=== PATIENT | female | born 1960 | race Caucasian/White ===

== ENCOUNTER 2017-09-24 22:04 | Emergency (ER) | payer MEDICARE ==
[~2017-09-24] VITALS: Ht 167.6 cm; Wt 132.9 kg
[2017-09-24 22:08] VITALS: BP_SYST 169
--- NOTE | 2017-09-24 22:17 | NUR ---
Patient to ER bed 7 to gown for evaluation. Side rails up. Report given to JONO LEA.
--- NOTE | 2017-09-24 22:20 | NUR ---
Patient AOx4, ambulatory, presents to ER with complaint of chest pain 6/10 radiating to left arm, palpitations, and REMY. Patient states hx of DM, HTN, and Fibromyalgia. Patient states she is non compliant with diet. No acute respiratory distress noted.
--- NOTE | 2017-09-24 22:40 | NUR ---
PEYMAN Wade at bedside for medical evaluation.
[2017-09-24] MEDS: ASPIRIN 81 MG TAB.CHEW PO ONE (22:47)
--- NOTE | 2017-09-24 22:54 | NUR ---
# 22 gauge angiocath placed to left hand. Use of asceptic technique. Opsite placed over site. Blood return noted. Blood for lab drawn from site. Flushed with 10 cc of normal saline. No evidence of infiltration noted. Patient tolerated well.
--- NOTE | 2017-09-24 23:05 | NUR ---
No adverse reactions noted after medication administration. Will continue to monitor.
[2017-09-24 23:06] LABS: BASOPHILS # (AUTO) 0.4 K/uL (0.0-0.2); BASOPHILS % (AUTO) 4.2 % (0.0-2.0); EOSINOPHILS # (AUTO) 0.1 K/uL (0.0-0.4); EOSINOPHILS % (AUTO) 0.8 % (0.0-4.0); HEMATOCRIT 41.7 % (36-48); HEMOGLOBIN 13.9 g/dL (12.0-16.0); LYMPHOCYTES # (AUTO) 2.3 K/uL (1.0-5.5); LYMPHOCYTES % (AUTO) 25.1 % (20.5-51.5); MEAN CORPUSCULAR HEMOGLOBIN 28 pg (27-31); MEAN CORPUSCULAR HGB CONC 33 % (32-36); MEAN CORPUSCULAR VOLUME 83 fL (79.0-98.0); MONOCYTES # (AUTO) 0.7 K/uL (0.0-1.0); MONOCYTES % (AUTO) 7.3 % (1.7-9.3); NEUTROPHILS # (AUTO) 5.9 K/uL (1.8-7.7); NEUTROPHILS % (AUTO) 62.6 % (40.0-70.0); PLATELET COUNT (AUTO) 315 K/uL (130-430); RED BLOOD CELL COUNT(AUTO) 5.03 MIL/uL (4.2-6.2); RED CELL DISTRIBUTION WIDTH 15.3 % (9.0-15.0); WHITE BLOOD COUNT (AUTO) 9.4 K/uL (4.8-10.8)
[2017-09-24 23:14] LABS: CALCIUM 10.3 mg/dL (8.4-11.0); CREATININE 1.21 mg/dL (0.55-1.30); POTASSIUM 4.7 mmol/L (3.5-5.1)
[2017-09-24 23:18] LABS: INR 0.9 (0.8-1.2); PROTHROMBIN TIME 9.5 SECS (9.5-12.5)
[2017-09-24 23:20] LABS: ALBUMIN 3.5 g/dL (3.4-4.8); TOTAL BILIRUBIN 0.3 mg/dL (0.0-1.0)
[2017-09-24 23:34] LABS: BILIRUBIN,URINE NEGATIVE (NEGATIVE); CLARITY/URINE CLEAR (CLEAR); COLOR,URINE YELLOW (YELLOW); GLUCOSE,URINE 3+ (NEGATIVE); KETONES,URINE NEGATIVE (NEGATIVE); LEUKOCYTE ESTERASE ,URINE NEGATIVE (NEGATIVE); NITRITE, URINE NEGATIVE (NEGATIVE); PROTEIN URINE NEGATIVE (NEGATIVE); UROBILINOGEN,URINE 0.2 (0.2-1.0)
[2017-09-24 23:35] LABS: BLOOD, URINE TRACE (NEGATIVE)
[2017-09-24 23:40] LABS: RBC,URINE 0-3 /HPF (0-3); WBC,URINE 0-3 /HPF (0-3)
[2017-09-24 23:41] LABS: BACTERIA,URINE FEW /HPF (None Seen); YEAST,URINE Few /HPF (None Seen)
[2017-09-24] MEDS: INSULIN REGULAR, HUMAN 10 UNITS/0.1 ML INJ IVP ONE (23:43)
[2017-09-25] MEDS ORDERED: FLUCONAZOLE 100 MG TABLET (DIFLUCAN) ONE (00:16)
[2017-09-25] MEDS: FLUCONAZOLE 200 MG TABLET (DIFLUCAN) PO ONE (00:20)
--- NOTE | 2017-09-25 00:32 | NUR ---
BS 268 at this time. made aware.
[2017-09-25 01:44] VITALS: BP_SYST 148
--- NOTE | 2017-09-25 01:44 | NUR ---
Patient given written and verbal discharge instructions and verbalizes understanding. ER MD discussed with patient the results and treatment provided. Patient in stable condition. ID arm band removed. IV catheter removed intact and dressing applied, no active bleeding. Patient educated on pain management and to follow up with PMD. Pain Scale 0/10. Opportunity for questions provided and answered.
== END 2017-09-25 01:44 | disposition home or self-care (01) ==
LOC: SED 22:04
DX: E11.65 Type 2 diabetes mellitus with hyperglycemia (principal); R07.89 Other chest pain; B37.9 Candidiasis, unspecified; J45.909 Unspecified asthma, uncomplicated; I10 Essential (primary) hypertension; E66.9 Obesity, unspecified; F17.200 Nicotine dependence, unspecified, uncomplicated; Z71.6 Tobacco abuse counseling; Z68.42 Body mass index [BMI] 45.0-49.9, adult; Z86.73 Personal history of transient ischemic attack (TIA), and cerebral infarction without residual deficits; Z88.5 Allergy status to narcotic agent; Z88.6 Allergy status to analgesic agent
CPT/HCPCS: 36415; 71045; 80053; 81000-TC; 83880; 84484; 85025; 85610-TC; 85730-TC; 93005; 96374; 99285; J1815

== ENCOUNTER 2019-01-05 22:27 | Emergency (ER) | payer OTHER, BC ==
[~2019-01-05] VITALS: Ht 167.6 cm; Wt 123.4 kg
[2019-01-05 22:35] VITALS: BP_SYST 147
[2019-01-05] MEDS ORDERED: NACL 0.9% 1,000 ML IV ONE (23:15)
[2019-01-05] MEDS ORDERED: INSULIN REGULAR, HUMAN 10 UNITS/0.1 ML INJ IVP ONE (23:15)
[2019-01-05 23:16] LABS: BILIRUBIN,URINE NEGATIVE (NEGATIVE); BLOOD, URINE NEGATIVE (NEGATIVE); CLARITY/URINE CLEAR (CLEAR); COLOR,URINE YELLOW (YELLOW); GLUCOSE,URINE 3+ (NEGATIVE); KETONES,URINE NEGATIVE (NEGATIVE); LEUKOCYTE ESTERASE ,URINE NEGATIVE (NEGATIVE); NITRITE, URINE NEGATIVE (NEGATIVE); PROTEIN URINE NEGATIVE (NEGATIVE); UROBILINOGEN,URINE 0.2 (0.2-1.0)
[2019-01-05 23:25] LABS: BASOPHILS # (AUTO) 0.2 K/uL (0.0-0.2); BASOPHILS % (AUTO) 2.1 % (0.0-2.0); EOSINOPHILS # (AUTO) 0.2 K/uL (0.0-0.4); EOSINOPHILS % (AUTO) 1.9 % (0.0-4.0); HEMATOCRIT 45.8 % (36-48); HEMOGLOBIN 15.5 g/dL (12.0-16.0); LYMPHOCYTES # (AUTO) 2.8 K/uL (1.0-5.5); LYMPHOCYTES % (AUTO) 29.1 % (20.5-51.5); MEAN CORPUSCULAR HEMOGLOBIN 29 pg (27-31); MEAN CORPUSCULAR HGB CONC 34 % (32-36); MEAN CORPUSCULAR VOLUME 85 fL (79.0-98.0); MONOCYTES # (AUTO) 0.6 K/uL (0.0-1.0); MONOCYTES % (AUTO) 6.3 % (1.7-9.3); NEUTROPHILS # (AUTO) 5.9 K/uL (1.8-7.7); NEUTROPHILS % (AUTO) 60.6 % (40.0-70.0); PLATELET COUNT (AUTO) 342 K/uL (130-430); RED BLOOD CELL COUNT(AUTO) 5.37 MIL/uL (4.2-6.2); RED CELL DISTRIBUTION WIDTH 14.7 % (9.0-15.0); WHITE BLOOD COUNT (AUTO) 9.7 K/uL (4.8-10.8)
[2019-01-05 23:38] LABS: CALCIUM 9.3 mg/dL (8.4-11.0); CREATININE 1.06 mg/dL (0.55-1.30); POTASSIUM 4.5 mmol/L (3.5-5.1)
[2019-01-05 23:43] LABS: ALBUMIN 3.3 g/dL (3.4-4.8); TOTAL BILIRUBIN 0.3 mg/dL (0.0-1.0)
[2019-01-05 23:45] LABS: BACTERIA,URINE FEW /HPF (None Seen); RBC,URINE 0-3 /HPF (0-3); WBC,URINE 0-3 /HPF (0-3)
[2019-01-06 01:04] VITALS: BP_SYST 132
== END 2019-01-06 01:04 | disposition home or self-care (01) ==
LOC: SED 22:27
DX: E11.9 Type 2 diabetes mellitus without complications (principal); M25.512 Pain in left shoulder; F17.210 Nicotine dependence, cigarettes, uncomplicated; J45.909 Unspecified asthma, uncomplicated; Z88.5 Allergy status to narcotic agent; Z88.0 Allergy status to penicillin; Z88.6 Allergy status to analgesic agent
CPT/HCPCS: 36415; 80053; 81000; 82962; 85025; 96374; 99283; J1815; J7030

== ENCOUNTER 2019-07-27 01:20 | Inpatient (IN) | payer OTHER, BC ==
[~2019-07-27] VITALS: Ht 167.6 cm; Wt 113.9 kg
[2019-07-27 01:23] VITALS: BP_SYST 122
[2019-07-27 02:02] LABS: CALCIUM 8.8 mg/dL (8.4-11.0); CREATININE 0.98 mg/dL (0.55-1.30); POTASSIUM 4.2 mmol/L (3.5-5.1)
[2019-07-27 02:03] LABS: BASOPHILS # (AUTO) 0.1 K/uL (0.0-0.2); BASOPHILS % (AUTO) 0.9 % (0.0-2.0); EOSINOPHILS # (AUTO) 0.2 K/uL (0.0-0.4); EOSINOPHILS % (AUTO) 2.1 % (0.0-4.0); HEMATOCRIT 41.7 % (36-48); HEMOGLOBIN 14.1 g/dL (12.0-16.0); LYMPHOCYTES # (AUTO) 3.5 K/uL (1.0-5.5); MEAN CORPUSCULAR HEMOGLOBIN 29 pg (27-31); MEAN CORPUSCULAR HGB CONC 34 % (32-36); MEAN CORPUSCULAR VOLUME 86 fL (79.0-98.0); MONOCYTES # (AUTO) 0.8 K/uL (0.0-1.0); MONOCYTES % (AUTO) 7.9 % (1.7-9.3); NEUTROPHILS % (AUTO) 56.1 % (40.0-70.0); PLATELET COUNT (AUTO) 297 K/uL (130-430); RED BLOOD CELL COUNT(AUTO) 4.84 MIL/uL (4.2-6.2); RED CELL DISTRIBUTION WIDTH 15.1 % (9.0-15.0); WHITE BLOOD COUNT (AUTO) 10.7 K/uL (4.8-10.8)
[2019-07-27 02:09] LABS: ALBUMIN 3.3 g/dL (3.4-4.8); TOTAL BILIRUBIN 0.2 mg/dL (0.0-1.0)
[2019-07-27] MEDS ORDERED: NITROGLYCERIN 0.4 MG TAB.SUBL SL ONE (02:30)
[2019-07-27] MEDS ORDERED: INSULIN REGULAR, HUMAN 10 UNITS/0.1 ML INJ IVP ONE (03:45)
[2019-07-27 05:44] VITALS: BP_SYST 142
[2019-07-27] MEDS ORDERED: LIP20 PO (06:51)
[2019-07-27] MEDS ORDERED: LEVO5TAB13 PO (06:51)
[2019-07-27] MEDS ORDERED: KLO2 PO (06:51)
[2019-07-27] MEDS ORDERED: FLUT1DIS3 IH (06:51)
[2019-07-27] MEDS ORDERED: LOSA100T3 PO (06:51)
[2019-07-27] MEDS ORDERED: MONT10TA25 PO (06:51)
[2019-07-27 08:00] VITALS: BP_SYST 100
[2019-07-27] MEDS ORDERED: NITROGLYCERIN 0.4 MG TAB.SUBL SL PRN (10:15)
[2019-07-27] MEDS ORDERED: IBUPROFEN 800 MG TABLET PO PRN (10:15)
[2019-07-27 12:00] VITALS: BP_SYST 117
[2019-07-27] MEDS: INSULIN REGULAR, HUMAN 100 UNITS/ML, 10 ML VIAL (humuLIN R) SUBCUT PRN ×2 (12:13→17:15)
[2019-07-27] MEDS ORDERED: D5W 1,000 ML IV PRN (15:30)
[2019-07-27] MEDS ORDERED: GLUCOSE 15 GM GEL (in 37.5 GM TUBE) PO PRN (15:30)
[2019-07-27] MEDS ORDERED: DEXTROSE 50%-WATER 50 ML DISP.SYRIN IVP PRN (15:30)
[2019-07-27 15:53] VITALS: BP_SYST 151
[2019-07-27] MEDS ORDERED: ONDANSETRON HCL 4 MG/2 ML VIAL IVP PRN (17:15)
[2019-07-27 20:00] VITALS: BP_SYST 126
[2019-07-27] MEDS: ALBUTEROL SULFATE 0.083% 2.5 MG/3 ML VIAL.NEB INH SCH (20:01)
[2019-07-27] MEDS: BUDESONIDE 0.5 MG/2 ML AMPUL.NEB INH SCH (20:02)
[2019-07-27] MEDS: ATORVASTATIN 20 MG TABLET PO SCH (21:08)
[2019-07-27] MEDS: clonazePAM 0.5 MG TABLET PO SCH (21:11)
[2019-07-27] MEDS: NORMAL SALINE 5 ML DISP.SYRIN IVF SCH ×2 (21:12→22:00)
[2019-07-28] VITALS: BP_SYST 119
[2019-07-28] MEDS: ALBUTEROL SULFATE 0.083% 2.5 MG/3 ML VIAL.NEB INH SCH ×4 (01:05→19:37)
[2019-07-28] MEDS: NORMAL SALINE 5 ML DISP.SYRIN IVF SCH ×6 (05:54→21:51)
[2019-07-28] MEDS: INSULIN REGULAR, HUMAN 100 UNITS/ML, 10 ML VIAL (humuLIN R) SUBCUT PRN ×5 (06:14→22:34)
[2019-07-28 07:12] LABS: BASOPHILS # (AUTO) 0.1 K/uL (0.0-0.2); BASOPHILS % (AUTO) 1.2 % (0.0-2.0); EOSINOPHILS # (AUTO) 0.2 K/uL (0.0-0.4); EOSINOPHILS % (AUTO) 2.8 % (0.0-4.0); HEMATOCRIT 38.6 % (36-48); HEMOGLOBIN 13.1 g/dL (12.0-16.0); LYMPHOCYTES # (AUTO) 3.6 K/uL (1.0-5.5); LYMPHOCYTES % (AUTO) 42.2 % (20.5-51.5); MEAN CORPUSCULAR HEMOGLOBIN 29 pg (27-31); MEAN CORPUSCULAR HGB CONC 34 % (32-36); MEAN CORPUSCULAR VOLUME 86 fL (79.0-98.0); MONOCYTES # (AUTO) 0.6 K/uL (0.0-1.0); MONOCYTES % (AUTO) 7.5 % (1.7-9.3); NEUTROPHILS % (AUTO) 46.3 % (40.0-70.0); PLATELET COUNT (AUTO) 289 K/uL (130-430); RED BLOOD CELL COUNT(AUTO) 4.52 MIL/uL (4.2-6.2); RED CELL DISTRIBUTION WIDTH 15.1 % (9.0-15.0); WHITE BLOOD COUNT (AUTO) 8.6 K/uL (4.8-10.8)
[2019-07-28] MEDS: BUDESONIDE 0.5 MG/2 ML AMPUL.NEB INH SCH ×2 (07:21→19:50)
[2019-07-28 07:42] LABS: ALBUMIN 3.1 g/dL (3.4-4.8); CALCIUM 8.8 mg/dL (8.4-11.0); CREATININE 0.76 mg/dL (0.55-1.30); PHOSPHORUS 4.5 mg/dL (2.7-4.5); POTASSIUM 4.1 mmol/L (3.5-5.1); TOTAL BILIRUBIN 0.3 mg/dL (0.0-1.0)
[2019-07-28] MEDS ORDERED: REGADENOSON 0.4 MG/5 ML SYRINGE IVP ONE (08:00)
[2019-07-28] MEDS: clonazePAM 0.5 MG TABLET PO SCH ×2 (08:13→21:34)
[2019-07-28] MEDS: MONTELUKAST 10 MG TABLET PO SCH (08:13)
[2019-07-28] MEDS: LOSARTAN POTASSIUM 50 MG TABLET (COZAAR) PO SCH (08:13)
[2019-07-28 08:17] VITALS: BP_SYST 115
[2019-07-28] MEDS ORDERED: PIOGLITAZONE HCL 30 MG TABLET PO ONE (09:45)
[2019-07-28] MEDS ORDERED: PIOGLITAZONE HCL 15 MG TABLET PO ONE (09:45)
[2019-07-28] MEDS ORDERED: metFORMIN HCL 500 MG TABLET PO ONE (10:00)
[2019-07-28] MEDS ORDERED: LORATADINE 10 MG TABLET PO ONE (10:00)
[2019-07-28] MEDS ORDERED: OMEGA-3/DHA/EPA/FISH OIL 1 GM CAPSULE PO ONE (10:00)
[2019-07-28 12:03] VITALS: BP_SYST 109
[2019-07-28 16:00] VITALS: BP_SYST 134
[2019-07-28] MEDS: metFORMIN HCL 500 MG TABLET PO SCH (17:37)
[2019-07-28 20:00] VITALS: BP_SYST 134
[2019-07-28] MEDS: ATORVASTATIN 20 MG TABLET PO SCH (21:35)
[2019-07-28] MEDS: OMEGA-3/DHA/EPA/FISH OIL 1 GM CAPSULE PO SCH (21:35)
[2019-07-28] MEDS: ACETAMINOPHEN 325 MG TABLET PO PRN (21:35)
[2019-07-29] VITALS: BP_SYST 134
[2019-07-29] MEDS: ALBUTEROL SULFATE 0.083% 2.5 MG/3 ML VIAL.NEB INH SCH ×3 (00:55→13:45)
[2019-07-29] MEDS: NORMAL SALINE 5 ML DISP.SYRIN IVF SCH ×3 (06:00→14:10)
[2019-07-29] MEDS: INSULIN REGULAR, HUMAN 100 UNITS/ML, 10 ML VIAL (humuLIN R) SUBCUT PRN (06:39)
[2019-07-29 07:33] LABS: BASOPHILS # (AUTO) 0.1 K/uL (0.0-0.2); BASOPHILS % (AUTO) 1.3 % (0.0-2.0); EOSINOPHILS # (AUTO) 0.2 K/uL (0.0-0.4); EOSINOPHILS % (AUTO) 2.8 % (0.0-4.0); HEMATOCRIT 40.5 % (36-48); HEMOGLOBIN 13.9 g/dL (12.0-16.0); LYMPHOCYTES # (AUTO) 3.5 K/uL (1.0-5.5); LYMPHOCYTES % (AUTO) 40.8 % (20.5-51.5); MEAN CORPUSCULAR HEMOGLOBIN 29 pg (27-31); MEAN CORPUSCULAR HGB CONC 34 % (32-36); MEAN CORPUSCULAR VOLUME 85 fL (79.0-98.0); MONOCYTES # (AUTO) 0.8 K/uL (0.0-1.0); MONOCYTES % (AUTO) 9.1 % (1.7-9.3); PLATELET COUNT (AUTO) 270 K/uL (130-430); RED BLOOD CELL COUNT(AUTO) 4.79 MIL/uL (4.2-6.2); RED CELL DISTRIBUTION WIDTH 14.8 % (9.0-15.0); WHITE BLOOD COUNT (AUTO) 8.6 K/uL (4.8-10.8)
[2019-07-29] MEDS: BUDESONIDE 0.5 MG/2 ML AMPUL.NEB INH SCH (07:41)
[2019-07-29 07:42] LABS: CALCIUM 9.2 mg/dL (8.4-11.0); CREATININE 0.73 mg/dL (0.55-1.30); POTASSIUM 4.1 mmol/L (3.5-5.1)
[2019-07-29 08:00] VITALS: BP_SYST 148
[2019-07-29] MEDS: metFORMIN HCL 500 MG TABLET PO SCH (08:00)
[2019-07-29] MEDS ORDERED: PIOGLITAZONE HCL 15 MG TABLET PO SCH (09:00)
[2019-07-29] MEDS ORDERED: LORATADINE 10 MG TABLET PO SCH (09:00)
[2019-07-29] MEDS: clonazePAM 0.5 MG TABLET PO SCH ×2 (09:00→09:17)
[2019-07-29] MEDS: MONTELUKAST 10 MG TABLET PO SCH (09:15)
[2019-07-29] MEDS: OMEGA-3/DHA/EPA/FISH OIL 1 GM CAPSULE PO SCH (09:16)
[2019-07-29] MEDS: LOSARTAN POTASSIUM 50 MG TABLET (COZAAR) PO SCH (09:18)
[2019-07-29 12:32] VITALS: BP_SYST 136
[2019-07-29] MEDS ORDERED: OMEG100036 PO (13:31)
[2019-07-29] MEDS ORDERED: PIOG15TA8 PO (13:31)
[2019-07-29] MEDS ORDERED: GLU500 PO (13:31)
[2019-07-29] MEDS: ACETAMINOPHEN 325 MG TABLET PO PRN (14:04)
[2019-07-29 14:32] VITALS: BP_SYST 136
== END 2019-07-29 15:15 | disposition home or self-care (01) | DRG 205 ==
LOC: SED 01:20 → STU 04:35
PROVIDERS: ADMIT Preventive Medicine Preventive Medicine/Occupational Environmental Medicine; ATTEND Preventive Medicine Preventive Medicine/Occupational Environmental Medicine
DX: M94.0 Chondrocostal junction syndrome [Tietze] (principal); E11.10 Type 2 diabetes mellitus with ketoacidosis without coma; E87.1 Hypo-osmolality and hyponatremia; Z68.41 Body mass index [BMI] 40.0-44.9, adult; E11.22 Type 2 diabetes mellitus with diabetic chronic kidney disease; E11.65 Type 2 diabetes mellitus with hyperglycemia; E66.9 Obesity, unspecified; E78.00 Pure hypercholesterolemia, unspecified; E78.1 Pure hyperglyceridemia; E78.5 Hyperlipidemia, unspecified; I12.9 Hypertensive chronic kidney disease with stage 1 through stage 4 chronic kidney disease, or unspecified chronic kidney disease; I25.10 Atherosclerotic heart disease of native coronary artery without angina pectoris; N18.9 Chronic kidney disease, unspecified; Z72.0 Tobacco use; Z79.4 Long term (current) use of insulin; Z82.49 Family history of ischemic heart disease and other diseases of the circulatory system; Z83.3 Family history of diabetes mellitus; Z79.899 Other long term (current) drug therapy; Z88.5 Allergy status to narcotic agent; Z88.8 Allergy status to other drugs, medicaments and biological substances; Z91.018 Allergy to other foods
CPT/HCPCS: 36415; 71045; 80048; 80053; 80061; 82550-TC; 82962; 83735-TC; 83880; 84100-TC; 84484; 85025; 93005; 93017; 93306; 94640; 94760; 96374; 99285; G0378; J1815; J2785; J7613; J7626

== ENCOUNTER 2021-07-25 23:44 | Inpatient (IN) | payer OTHER, BC, SELFPAY ==
[~2021-07-25] VITALS: Ht 162.6 cm; Wt 115.3 kg
[~2021-07-25 23:44] MED LIST: FLUT1DIS3 IH; GLU500 PO; KLO2 PO; LEVO5TAB13 PO; LIP20 PO; LOSA100T3 PO; MONT-40 PO; OMEG100036 PO; PIOG15TA8 PO
[2021-07-25 23:50] VITALS: BP_SYST 160
--- NOTE | 2021-07-25 23:50 | NUR ---
Placed in room 1 . Placed on potline monitor, blood pressure machine and pulse oximeter. To gown for exam. Side rails up. Report given to CAMRYN DE LA CRUZ.
--- NOTE | 2021-07-26 | NUR ---
Patient BIB by family from home. C/O dizziness x 2 days. Patient reported, had headache, dizziness and blurred vision since Sunday. A/O,X4, weakness, dizziness, chest pain, head pain, blurred vision, place patient on monitor worker and pulse ox and STAT EKG at bedside, Patient 's family at bedside.
[2021-07-26] MEDS ORDERED: MECLIZINE HCL 25 MG TABLET (ANITVERT) PO ONE (00:15)
--- NOTE | 2021-07-26 00:20 | NUR ---
# 20 gauge angiocath placed to LAC. Use of asceptic technique. Opsite placed over site. Blood return noted. Blood for lab drawn from site. Flushed with 10 cc of normal saline. No evidence of infiltration noted. Patient tolerated well.
--- NOTE | 2021-07-26 00:48 | NUR ---
Returned from radiology, back to [facility].
[2021-07-26 00:58] LABS: ANION GAP 4 (5-15); CALCIUM 9.4 mg/dL (8.4-11.0); CHLORIDE 98 mmol/L (98-107); CREATININE 0.86 mg/dL (0.55-1.30); GLUCOSE 317 mg/dL (70-99); POTASSIUM 5.2 mmol/L (3.5-5.1); SODIUM SERUM 133 mmol/L (136-145); UREA NITROGEN, BLOOD 14 mg/dL (8-21)
[2021-07-26 01:09] LABS: ALANINE AMINOTRANSFERASE 37 U/L (12-78); ALBUMIN 3.5 g/dL (3.4-4.8); ASPARTATE AMINOTRANSFERASE 16 U/L (10-37); GFR AFRICAN AMERICAN 86 mL/min (>90); TOTAL BILIRUBIN 0.2 mg/dL (0.0-1.0)
--- NOTE | 2021-07-26 01:55 | NUR ---
ER Dr. Tello at bedside examining patient.
--- NOTE | 2021-07-26 02:31 | NUR ---
COVID-19 swabs collected and sent to lab.
[2021-07-26] MEDS ORDERED: GLIM4TAB PO (02:39)
--- NOTE | 2021-07-26 02:39 | NUR ---
Medication reconciliation completed with information provided by patient. Any prior medication reconciliation on file was reviewed and corrected.
[2021-07-26 02:46] LABS: BASOPHILS # (AUTO) 0.1 K/uL (0.0-0.2); BASOPHILS % (AUTO) 1.3 % (0.0-2.0); EOSINOPHILS # (AUTO) 0.2 K/uL (0.0-0.4); EOSINOPHILS % (AUTO) 2.3 % (0.0-4.0); HEMATOCRIT 45.2 % (36-48); HEMOGLOBIN 15.1 g/dL (12.0-16.0); LYMPHOCYTES # (AUTO) 2.8 K/uL (1.0-5.5); LYMPHOCYTES % (AUTO) 32.7 % (20.5-51.5); MEAN CORPUSCULAR HEMOGLOBIN 28 pg (27-31); MEAN CORPUSCULAR HGB CONC 33 % (32-36); MEAN CORPUSCULAR VOLUME 84 fL (79.0-98.0); MONOCYTES # (AUTO) 0.5 K/uL (0.0-1.0); MONOCYTES % (AUTO) 6.2 % (1.7-9.3); NEUTROPHILS # (AUTO) 4.9 K/uL (1.8-7.7); NEUTROPHILS % (AUTO) 57.5 % (40.0-70.0); PLATELET COUNT (AUTO) 328 K/uL (130-430); RED BLOOD CELL COUNT(AUTO) 5.39 MIL/uL (4.2-6.2); RED CELL DISTRIBUTION WIDTH 15.1 % (9.0-15.0); WHITE BLOOD COUNT (AUTO) 8.5 K/uL (4.8-10.8)
[2021-07-26] MEDS ORDERED: ASPIRIN 325 MG TABLET PO ONE (03:30)
[2021-07-26] MEDS ORDERED: ASPIRIN 325 MG TABLET ONE (03:31)
--- NOTE | 2021-07-26 03:41 | NUR ---
Patient will be admitted to care of Dr. Chaudhari. Admitted to TELE unit. Will go to room 123B. Belongings list completed. Complete and up to date summary report printed. SBAR report to be given at bedside with opportunity for questions.
[2021-07-26] MEDS ORDERED: ACETAMINOPHEN 500 MG TABLET ONE (03:49)
--- NOTE | 2021-07-26 03:50 | NUR ---
Patient had lower back pain, Dr. Tello notified.
--- NOTE | 2021-07-26 03:55 | NUR ---
Given Tylenol 1000 mg PO as Verbal by Dr. Tello.
[2021-07-26] MEDS ORDERED: ACETAMINOPHEN 500 MG TABLET PO ONE ×2 (04:00→15:30)
[2021-07-26 04:20] VITALS: BP_SYST 137
--- NOTE | 2021-07-26 05:16 | NUR ---
Consultation Paged Reason for Consultation: Chest Pain Was consult called: Y Person who was notified: Sarath Consulting Physician: David Finn Ordering Physician: Andry Fletcher
--- NOTE | 2021-07-26 05:17 | NUR ---
Consultation Paged Reason for Consultation: Weakness Was consult called: Y Person who was notified: Dr. Blanco text message Consulting Physician: Dinh Hensley Ordering Physician: Andry Fletcher
--- NOTE | 2021-07-26 05:23 | NUR ---
Patient received from ER at 0415. Patient is AA&OX4 able to make needs known. Patient denies any current chest pain or SOB. Chest rise is even and unlabored on RA. Normal heart sounds S1 & S2 present. Active bowel sounds x4, denies pain with palpation. Patient is ambulatory with assist due to admitting diagnosis of dizziness and unsteady gait. PIV is present on the LAC 20G that is patent and saline locked. Skin is intact and free of open wounds. Patient has been orientated to room and call light. All current needs have been met. Call light is within reach, bed is in the lowest position with bed rails up. Will continue to monitor throughout the shift.
[2021-07-26 06:36] LABS: ERYTHROCYTE SEDIMENTATION RATE 35 MM/HR (0-20)
--- NOTE | 2021-07-26 06:41 | NUR ---
Patient is currently resting with no s/s of distress and no c/o. All current needs have been met. Call light is within reach , bed is in the lowest position and bed rails are up. Will differ further care to am shift for continuity of care.
[2021-07-26 08:00] VITALS: BP_SYST 139
--- NOTE | 2021-07-26 08:00 | NUR ---
OPENING NOTE AWAKE AND ORIENTED. DENIES ANY SHORTNESS OF BREATH. PAIN IS CONTROLLED AT THIS TIME. IV INTACT. PATIENT SAID SHE DOESN'T GET ANY REACTION TO REGULAR TYLENOL - ONLY THOSE WITH CODEINE. PLAN OF CARE EXPLAINED TO PATIENT. CALL LIGHT WITHIN REACH. SAFETY CHECKS DONE. WILL MONITOR.
[2021-07-26] MEDS ORDERED: ASPIRIN 81 MG TAB.CHEW PO ONE (14:00)
--- NOTE | 2021-07-26 14:40 | NUR ---
PAIN REPORTED GENERALIZED PAIN. PATIENT SAID THAT SHE USUALLY GETS TYLENOL 1,000MG IN THE MORNING AND 1,000MG AT NIGHT. PAGED DR. [place] GALLARDO.
[2021-07-26 16:00] VITALS: BP_SYST 135
--- NOTE | 2021-07-26 18:55 | NUR ---
CLOSING NOTE RESTING. PAIN IS CONTROLLED AT THIS TIME. NO SHORTNESS OF BREATH. ALL NEEDS MET THROUGHOUT SHIFT. SAFETY CHECKS DONE. WILL ENDORSE TO NIGHT NURSE.
[2021-07-26] MEDS ORDERED: LORazepam 2 MG/ML VIAL IVP PRN (19:15)
[2021-07-26] MEDS ORDERED: ONDANSETRON HCL 4 MG/2 ML VIAL IVP PRN (19:15)
[2021-07-26 20:00] VITALS: BP_SYST 142
--- NOTE | 2021-07-26 20:21 | NUR ---
Received patient from AM shift. Patient is AA&Ox4 able to make needs known, denies chest pain or SOB. Chest rise is even and unlabored on RA. Normal heart sounds present. Active bowel sounds x4 on auscultation and denies pain with palpation. Reports generalized pain at 4/10 but states that it is controlled. PIV is present, patent, flushes and is saline locked. Patient is stable. Call light is is within reach, bed is in the lowest position with bed rails up. Will continue to monitor throughout the shift.
[2021-07-26] MEDS ORDERED: CLONAZEPAM 2 MG PO SCH (21:00)
[2021-07-26] MEDS ORDERED: FLUTICASONE 250 mCg/SALMETEROL 50 mCg DISKUS W.DEV IH SCH (21:00)
[2021-07-26] MEDS: GLIMEPIRIDE 2 MG TABLET PO SCH (21:10)
[2021-07-26] MEDS: OMEGA-3/DHA/EPA/FISH OIL 1 GM CAPSULE PO SCH (21:10)
[2021-07-26] MEDS: ACETAMINOPHEN 500 MG TABLET PO SCH (21:12)
[2021-07-26] MEDS: clonazePAM 0.5 MG TABLET PO SCH (21:12)
[2021-07-26] MEDS: INSULIN REGULAR, HUMAN 100 UNITS/ML, 10 ML VIAL (humuLIN R) SUBCUT PRN (21:19)
[2021-07-26] MEDS: NORMAL SALINE 5 ML DISP.SYRIN IVF SCH (21:20)
[2021-07-26] MEDS ORDERED: NORMAL SALINE 5 ML DISP.SYRIN IVF SCH (22:00)
--- NOTE | 2021-07-26 22:30 | NUR ---
DR. GALLARDO was notified of patient's BS level of 445. New order was placed for 20U of Lantus at bed time starting tonight. Orders noted and carried out.
[2021-07-26] MEDS ORDERED: INSULIN GLARGINE 100 UNITS/ML 10 ML VIAL SUBCUT SCH (23:00)
[2021-07-26 23:38] VITALS: BP_SYST 142
[2021-07-27 00:08] VITALS: BP_SYST 136
--- NOTE | 2021-07-27 01:00 | NUR ---
Patient is sleeping with no s/s of distress noted. Call light is within reach, bed is in the lowest position with bed rails up. Will continue to monitor.
[2021-07-27] MEDS: NORMAL SALINE 5 ML DISP.SYRIN IVF SCH ×2 (06:12→14:16)
[2021-07-27] MEDS: INSULIN REGULAR, HUMAN 100 UNITS/ML, 10 ML VIAL (humuLIN R) SUBCUT PRN ×2 (06:15→11:08)
--- NOTE | 2021-07-27 06:51 | NUR ---
Patient is currently resting with no s/s of distress and denies any discomfort. All current needs have been met. Call light is within reach, bed is locked, in the lowest position with bed rails up. Will differ further care to am shift nurse for continuity of care.
[2021-07-27 07:05] LABS: BASOPHILS # (AUTO) 0.1 K/uL (0.0-0.2); BASOPHILS % (AUTO) 0.8 % (0.0-2.0); EOSINOPHILS # (AUTO) 0.2 K/uL (0.0-0.4); EOSINOPHILS % (AUTO) 3.2 % (0.0-4.0); HEMATOCRIT 44.5 % (36-48); HEMOGLOBIN 14.9 g/dL (12.0-16.0); LYMPHOCYTES % (AUTO) 42.5 % (20.5-51.5); MEAN CORPUSCULAR HEMOGLOBIN 28 pg (27-31); MEAN CORPUSCULAR HGB CONC 34 % (32-36); MEAN CORPUSCULAR VOLUME 83 fL (79.0-98.0); MONOCYTES # (AUTO) 0.6 K/uL (0.0-1.0); MONOCYTES % (AUTO) 8.7 % (1.7-9.3); NEUTROPHILS # (AUTO) 3.1 K/uL (1.8-7.7); NEUTROPHILS % (AUTO) 44.8 % (40.0-70.0); PLATELET COUNT (AUTO) 314 K/uL (130-430); RED BLOOD CELL COUNT(AUTO) 5.34 MIL/uL (4.2-6.2); RED CELL DISTRIBUTION WIDTH 14.8 % (9.0-15.0)
--- NOTE | 2021-07-27 07:45 | NUR ---
OPENING NOTES AWAKE AND ORIENTED. NO SHORTNESS OF BREATH ON ROOM AIR. PATIENT REMOVED HER OXYGEN FOR NOW. DENIES ANY PAIN. IV ACCESS INTACT. PLAN OF CARE DISCUSSED WITH PATIENT, VERBALIZED UNDERSTANDING. SERVED WITH BREAKFAST. SAFETY CHECKS DONE. CALL LIGHT WITHIN REACH. WILL MONITOR.
[2021-07-27 07:51] LABS: ALANINE AMINOTRANSFERASE 33 U/L (12-78); ALBUMIN 3.1 g/dL (3.4-4.8); ANION GAP 8 (5-15); ASPARTATE AMINOTRANSFERASE 15 U/L (10-37); CALCIUM 9.3 mg/dL (8.4-11.0); CHLORIDE 100 mmol/L (98-107); CREATININE 0.74 mg/dL (0.55-1.30); GLUCOSE 225 mg/dL (70-99); PHOSPHORUS 4.1 mg/dL (2.7-4.5); POTASSIUM 4.2 mmol/L (3.5-5.1); SODIUM SERUM 135 mmol/L (136-145); TOTAL BILIRUBIN 0.2 mg/dL (0.0-1.0); UREA NITROGEN, BLOOD 15 mg/dL (8-21)
[2021-07-27 08:07] VITALS: BP_SYST 120
[2021-07-27 08:09] LABS: GFR AFRICAN AMERICAN 103 mL/min (>90)
[2021-07-27] MEDS: clonazePAM 0.5 MG TABLET PO SCH (08:45)
[2021-07-27] MEDS: OMEGA-3/DHA/EPA/FISH OIL 1 GM CAPSULE PO SCH (08:45)
[2021-07-27] MEDS: GLIMEPIRIDE 2 MG TABLET PO SCH (08:46)
[2021-07-27] MEDS: ACETAMINOPHEN 500 MG TABLET PO SCH ×2 (08:48→15:33)
[2021-07-27 08:54] LABS: CHOLESTEROL 344 mg/dL (<200); HDL CHOLESTEROL 39 mg/dL (>55); LDL CHOLESTEROL 194 mg/dL (<100); TRIGLYCERIDES 420 mg/dL (30-150)
[2021-07-27] MEDS ORDERED: NON-FORMULARY MEDICATION (Levocetirizine Dihydrochloride 5 MG) PO SCH (09:00)
[2021-07-27] MEDS ORDERED: ASPIRIN 81 MG TAB.CHEW PO SCH (09:00)
[2021-07-27] MEDS ORDERED: MONTELUKAST 10 MG TABLET PO SCH (09:00)
[2021-07-27] MEDS ORDERED: LOSARTAN POTASSIUM 50 MG TABLET (COZAAR) PO SCH (09:00)
[2021-07-27] MEDS ORDERED: ATORVASTATIN 20 MG TABLET PO SCH (09:00)
--- NOTE | 2021-07-27 10:27 | NUR ---
Nutrition Update : Surinder Scale: 16 noted Pt admitted for Chest pain and Dizziness. Diet: Cardiac, CCHO BMI: 43.6 kg/m2 RD to follow per nutrition care standards.
--- NOTE | 2021-07-27 11:13 | NUR ---
ROUNDS ACCU-CHECK OF 270MG/DL. INSULIN COVERAGE ADMINISTERED ORDERED. PATIENT AGREED TO DO A CLOSED MRI WITH ATIVAN. SAFETY CHECKS DONE. CALL LIGHT WITHIN REACH.
[2021-07-27] MEDS ORDERED: ALBUTEROL SULFATE 0.083% 2.5 MG/3 ML VIAL.NEB INH ONE (11:27)
[2021-07-27] MEDS ORDERED: BUDESONIDE 0.5 MG/2 ML AMPUL.NEB ONE (11:27)
[2021-07-27 11:28] VITALS: BP_SYST 99
--- NOTE | 2021-07-27 11:39 | NUR ---
ATALBINO REQUESTED TO HAVE ATIVAN BEFORE MRI SCAN BECAUSE PATIENT IS AFRAID OF CLOSED SPACES. MEDICATION ADMINISTERED. PATIENT WAS PICKED UP VIA WHEELCHAIR BY MRI STAFF.
--- NOTE | 2021-07-27 13:30 | NUR ---
CRITICAL FINDING DR GALLARDO ON THE FLOOR, INFORMED DR OF CRITICAL FINDING OF MRI SCAN, DR TO SEE PATIENT
[2021-07-27] MEDS ORDERED: METF-518 PO (13:41)
[2021-07-27] MEDS ORDERED: ASA81 PO (13:41)
[2021-07-27] MEDS ORDERED: PIOG30TA70 PO (13:41)
[2021-07-27] MEDS ORDERED: LIP20 PO (13:41)
--- NOTE | 2021-07-27 14:29 | NUR ---
SPOKE TO DR. VILLAR SPOKE TO DR. VILLAR ON THE PHONE. MRI RESULTS WERE READ TO HIM. HE CLEARED THE PATIENT FOR DISCHARGE. INSTRUCTED FOR PATIENT TO SEE HIM IN 2 WEEKS.
[2021-07-27 15:08] VITALS: BP_SYST 124
[2021-07-27 15:28] VITALS: BP_SYST 124
--- NOTE | 2021-07-27 15:29 | NUR ---
PAIN; REFUSED FLU SHOT REPORTS THAT SHE HAS A HEADACHE, SHOULDER AND HIP PAIN. REQUESTED FOR TYLENOL. WILL MEDICATE. REFUSED FLU SHOT FOR NOW BECAUSE IT EXACERBATES HER ASTHMA.
--- NOTE | 2021-07-27 16:00 | NUR ---
PHYSICAL THERAPY SEEN BY DARLYN. PATIENT REPORTED THAT SHE DOES NOT HAVE A WALKER AT HOME. SPOKE WITH SHADE BANDER, DANNY. SHE SAID SHE WILL ORDER A WALKER FOR PATIENT AND HAVE IT DELIVERED TO HER HOME.
--- NOTE | 2021-07-27 16:20 | NUR ---
D/C Patient Patient given medication reconciliation form and D/C instructions. Exit Care provided. Patient verbalized understanding. MD discussed with patient the results and treatment provided. Ambulatory with steady gait for discharge to home. Patient in stable condition, ID band removed. IV catheter removed, intact and dressing applied, no active bleeding. Rx of Aspirin, Atorvastatin, Metformin and Pioglitazone given to patient. Patient educated on pain management, diet, exercise and blood pressure and blood sugar monitoring. All belongings sent with patient.
[2021-07-27] MEDS ORDERED: BUDESONIDE 0.5 MG/2 ML AMPUL.NEB INH SCH (19:00)
[2021-07-27] MEDS ORDERED: ALBUTEROL SULFATE 0.083% 2.5 MG/3 ML VIAL.NEB INH SCH (19:00)
[2021-07-27] MEDS ORDERED: CLOPIDOGREL BISULFATE 75 MG TABLET PO ONE (19:15)
[2021-07-28] MEDS ORDERED: ATORVASTATIN 20 MG TABLET PO SCH (09:00)
[2021-07-28] MEDS ORDERED: CLOPIDOGREL BISULFATE 75 MG TABLET PO SCH (09:00)
== END 2021-07-27 16:20 | disposition home or self-care (01) | DRG 205 ==
LOC: SED 23:44 → STU 07-26 03:25
PROVIDERS: ADMIT Preventive Medicine Preventive Medicine/Occupational Environmental Medicine; ATTEND Preventive Medicine Preventive Medicine/Occupational Environmental Medicine
DX: M94.0 Chondrocostal junction syndrome [Tietze] (principal); I63.9 Cerebral infarction, unspecified; E87.0 Hyperosmolality and hypernatremia; Z68.41 Body mass index [BMI] 40.0-44.9, adult; E11.65 Type 2 diabetes mellitus with hyperglycemia; E78.2 Mixed hyperlipidemia; I25.10 Atherosclerotic heart disease of native coronary artery without angina pectoris; R51.9 Headache, unspecified; R20.0 Anesthesia of skin; G89.4 Chronic pain syndrome; E87.5 Hyperkalemia; J45.909 Unspecified asthma, uncomplicated; M54.30 Sciatica, unspecified side; E88.09 Other disorders of plasma-protein metabolism, not elsewhere classified; R27.0 Ataxia, unspecified; I11.9 Hypertensive heart disease without heart failure; Z20.822 Contact with and (suspected) exposure to COVID-19; F17.210 Nicotine dependence, cigarettes, uncomplicated; M79.7 Fibromyalgia; E66.01 Morbid (severe) obesity due to excess calories; E11.40 Type 2 diabetes mellitus with diabetic neuropathy, unspecified; Z88.6 Allergy status to analgesic agent; Z88.5 Allergy status to narcotic agent; Z88.8 Allergy status to other drugs, medicaments and biological substances; Z88.1 Allergy status to other antibiotic agents; Z91.018 Allergy to other foods; Z79.899 Other long term (current) drug therapy; I25.2 Old myocardial infarction; Z83.3 Family history of diabetes mellitus; Z82.49 Family history of ischemic heart disease and other diseases of the circulatory system
CPT/HCPCS: 36415; 70450-TC; 70551; 71045; 76376; 80053; 80061; 82962; 83735; 84100; 84443; 84484; 85025; 85379; 85651-TC; 93005; 93306; 93880; 94640; 99285; G0378; J1815; J2060; J7613; J7626; J8597

== ENCOUNTER 2023-12-14 19:29 | Emergency (ER) | payer OTHER, BC ==
[~2023-12-14] VITALS: Ht 167.6 cm; Wt 114.3 kg
[~2023-12-14 19:29] MED LIST changes: +ASA81 PO; +CLON-845 PO; +GLIM4TAB PO; -GLU500 PO; -KLO2 PO; +LOSA-415 PO; -LOSA100T3 PO; +METF-518 PO; -PIOG15TA8 PO; +PIOG30TA70 PO
[2023-12-14 19:38] VITALS: BP_SYST 164; PULSE 86; RESP 20; TEMP 97.6; O2SAT 96
[2023-12-14 19:55] VITALS: TEMP 97.6
[2023-12-14 20:09] LABS: BASOPHILS # (AUTO) 0.2 K/uL (0.0-0.2); EOSINOPHILS # (AUTO) 0.3 K/uL (0.0-0.4); MEAN CORPUSCULAR HEMOGLOBIN 29 pg (27-31); MONOCYTES # (AUTO) 0.5 K/uL (0.0-1.0); RED CELL DISTRIBUTION WIDTH 14.4 % (9.0-15.0)
[2023-12-14 20:17] LABS: HEMOGLOBIN 13.1 g/dL (12.0-16.0); MEAN CORPUSCULAR VOLUME 85 fL (79.0-98.0); WHITE BLOOD COUNT (AUTO) 8.3 K/uL (4.8-10.8)
[2023-12-14 20:18] LABS: BASOPHILS % (AUTO) 1.9 % (0.0-2.0); EOSINOPHILS % (AUTO) 3.3 % (0.0-4.0); LYMPHOCYTES # (AUTO) 2.6 K/uL (1.0-5.5); LYMPHOCYTES % (AUTO) 31.8 % (20.5-51.5); MEAN CORPUSCULAR HGB CONC 35 % (32-36); MONOCYTES % (AUTO) 5.7 % (1.7-9.3); NEUTROPHILS # (AUTO) 4.7 K/uL (1.8-7.7); NEUTROPHILS % (AUTO) 57.3 % (40.0-70.0); PLATELET COUNT (AUTO) 317 K/uL (130-430)
[2023-12-14 20:22] LABS: ANION GAP 5 (5-15); CALCIUM 8.5 mg/dL (8.4-11.0); CARBON DIOXIDE 28 mmol/L (23-29); CHLORIDE 101 mmol/L (98-107); CREATININE 1.04 mg/dL (0.55-1.30); GFR AFRICAN AMERICAN 69 mL/min (>90); GLUCOSE 368 mg/dL (74-106); POTASSIUM 4.4 mmol/L (3.5-5.1); SODIUM SERUM 134 mmol/L (136-145); UREA NITROGEN, BLOOD 34 mg/dL (8-21)
[2023-12-14 20:23] LABS: GFR NON AFRICAN-AMERICAN 57 mL/min (>90)
[2023-12-14] MEDS: ACETAMINOPHEN 500 MG TABLET PO ONE (22:39)
[2023-12-14] MEDS: INSULIN REGULAR, HUMAN 10 UNITS/0.1 ML, 3 ML VIAL SUBCUT ONE (22:53)
[2023-12-14 23:58] VITALS: BP_SYST 137; PULSE 70; RESP 19; O2SAT 99
== END 2023-12-14 23:58 | disposition home or self-care (01) ==
LOC: SED 19:29
DX: R51.9 Headache, unspecified (principal); E11.65 Type 2 diabetes mellitus with hyperglycemia; R73.9 Hyperglycemia, unspecified; J44.9 Chronic obstructive pulmonary disease, unspecified; I10 Essential (primary) hypertension; Z88.1 Allergy status to other antibiotic agents; Z88.2 Allergy status to sulfonamides; Z88.5 Allergy status to narcotic agent; Z88.6 Allergy status to analgesic agent; Z91.030 Bee allergy status; Z91.011 Allergy to milk products; Z79.899 Other long term (current) drug therapy
CPT/HCPCS: 36415; 70450-TC; 71045; 80048; 82948; 84484; 85025; 93005; 99285

== ENCOUNTER 2023-12-31 09:30 | Inpatient (IN) | payer OTHER, BC ==
[~2023-12-31] VITALS: Ht 165.1 cm; Wt 113.1 kg
[2023-12-31] VITALS (8 sets, daily range): BP systolic 136–149; PULSE 72–80; RESP 18–19; TEMP 97.1–97.8; O2SAT 94–98
[2023-12-31 10:21] LABS: BASOPHILS # (AUTO) 0.1 K/uL (0.0-0.2); BASOPHILS % (AUTO) 0.9 % (0.0-2.0); EOSINOPHILS # (AUTO) 0.3 K/uL (0.0-0.4); EOSINOPHILS % (AUTO) 3.1 % (0.0-4.0); HEMATOCRIT 40.9 % (36-48); HEMOGLOBIN 13.7 g/dL (12.0-16.0); LYMPHOCYTES # (AUTO) 2.6 K/uL (1.0-5.5); LYMPHOCYTES % (AUTO) 30.2 % (20.5-51.5); MEAN CORPUSCULAR HEMOGLOBIN 29 pg (27-31); MEAN CORPUSCULAR HGB CONC 34 % (32-36); MEAN CORPUSCULAR VOLUME 86 fL (79.0-98.0); MONOCYTES # (AUTO) 0.8 K/uL (0.0-1.0); MONOCYTES % (AUTO) 8.9 % (1.7-9.3); NEUTROPHILS % (AUTO) 56.9 % (40.0-70.0); PLATELET COUNT (AUTO) 318 K/uL (130-430); RED BLOOD CELL COUNT(AUTO) 4.78 MIL/uL (4.2-6.2); RED CELL DISTRIBUTION WIDTH 14.9 % (9.0-15.0); WHITE BLOOD COUNT (AUTO) 8.7 K/uL (4.8-10.8)
[2023-12-31 10:32] LABS: ANION GAP 7 (5-15); CALCIUM 9.5 mg/dL (8.4-11.0); CARBON DIOXIDE 29 mmol/L (23-29); CHLORIDE 103 mmol/L (98-107); CREATININE 1.11 mg/dL (0.55-1.30); GFR AFRICAN AMERICAN 64 mL/min (>90); GFR NON AFRICAN-AMERICAN 53 mL/min (>90); GLUCOSE 204 mg/dL (74-106); POTASSIUM 4.7 mmol/L (3.5-5.1); SODIUM SERUM 139 mmol/L (136-145); UREA NITROGEN, BLOOD 36 mg/dL (8-21)
[2023-12-31 10:34] LABS: INR 0.9 (0.8-1.2); PROTHROMBIN TIME 9.5 SECS (9.5-12.5)
[2023-12-31 11:33] LABS: INFLUENZA TYPE A Negative (NEGATIVE); INFLUENZA TYPE B NEGATIVE (NEGATIVE)
[2023-12-31] MEDS ORDERED: INSU100I26 SUBCUT (12:57)
[2023-12-31] MEDS ORDERED: LOSA100T24 PO (12:57)
[2023-12-31] MEDS ORDERED: ICOS1CAP PO (12:57)
[2023-12-31] MEDS ORDERED: CLON1TAB12 PO (12:57)
[2023-12-31] MEDS ORDERED: ALBMDI INH (12:57)
[2023-12-31] MEDS ORDERED: FLUT1BLS14 INH (12:57)
[2023-12-31] MEDS ORDERED: GLIM4TAB37 PO (12:57)
[2023-12-31] MEDS ORDERED: ZOLPIDEM TARTRATE 5 MG TABLET PO PRN (13:45)
[2023-12-31] MEDS ORDERED: MAGNESIUM SULFATE 50 ML IV PRN (13:45)
[2023-12-31] MEDS ORDERED: ONDANSETRON HCL 4 MG/2 ML VIAL IVP PRN (13:45)
[2023-12-31] MEDS ORDERED: DEXTROSE 50% JECT 50 ML DISP.SYRIN IVP PRN (13:45)
[2023-12-31] MEDS ORDERED: POTASSIUM CHLORIDE 20 MEQ TABLET.ER PO PRN (13:45)
[2023-12-31] MEDS ORDERED: LORazepam 2 MG/ML VIAL IVP PRN (13:45)
[2023-12-31] MEDS ORDERED: MUPIROCIN 2% TOPICAL OINTMENT 22 GM NS PRN (13:45)
[2023-12-31] MEDS ORDERED: IPRATROPIUM/ALBUTEROL SULFATE 3 ML AMPUL.NEB (DUONEB) INH PRN (13:45)
[2023-12-31] MEDS: DOCUSATE SODIUM 100 MG CAPSULE PO PRN (17:12)
[2023-12-31] MEDS: AZITHROMYCIN 250 MG TABLET PO ONE (17:13)
[2023-12-31] MEDS: ALBUTEROL SULFATE 0.083% 2.5 MG/3 ML VIAL.NEB INH SCH (21:06)
[2023-12-31] MEDS: BUDESONIDE 0.5 MG/2 ML AMPUL.NEB INH SCH (21:07)
[2023-12-31] MEDS: NACL 0.9% 1,000 ML IV SCH (22:27)
[2023-12-31] MEDS: cefTRIAXone 1 GM in D5W 50 ML IV SCH (22:32)
[2023-12-31] MEDS: ATORVASTATIN 20 MG TABLET PO SCH (22:41)
[2023-12-31] MEDS: INSULIN LISPRO SLIDING SCALE 100 UNITS/ML, 3 ML VIAL (humaLOG) SUBCUT PRN (22:46)
[2024-01-01 04:10] LABS: BASOPHILS # (AUTO) 0.2 K/uL (0.0-0.2); BASOPHILS % (AUTO) 1.8 % (0.0-2.0); EOSINOPHILS # (AUTO) 0.3 K/uL (0.0-0.4); EOSINOPHILS % (AUTO) 3.6 % (0.0-4.0); HEMATOCRIT 34.8 % (36-48); HEMOGLOBIN 11.7 g/dL (12.0-16.0); LYMPHOCYTES # (AUTO) 3.4 K/uL (1.0-5.5); LYMPHOCYTES % (AUTO) 37.4 % (20.5-51.5); MEAN CORPUSCULAR HEMOGLOBIN 28 pg (27-31); MEAN CORPUSCULAR HGB CONC 34 % (32-36); MEAN CORPUSCULAR VOLUME 85 fL (79.0-98.0); MONOCYTES # (AUTO) 0.7 K/uL (0.0-1.0); MONOCYTES % (AUTO) 8.2 % (1.7-9.3); NEUTROPHILS # (AUTO) 4.4 K/uL (1.8-7.7); PLATELET COUNT (AUTO) 288 K/uL (130-430); RED CELL DISTRIBUTION WIDTH 14.6 % (9.0-15.0)
[2024-01-01 04:31] LABS: CALCIUM 8.6 mg/dL (8.4-11.0); CREATININE 0.77 mg/dL (0.55-1.30); POTASSIUM 4.5 mmol/L (3.5-5.1)
[2024-01-01 07:37] VITALS: O2SAT 98
[2024-01-01] MEDS: LOSARTAN POTASSIUM 50 MG TABLET (COZAAR) PO SCH (08:54)
[2024-01-01] MEDS: MONTELUKAST 10 MG TABLET PO SCH (09:07)
[2024-01-01] MEDS: CLOPIDOGREL BISULFATE 75 MG TABLET PO SCH (09:07)
[2024-01-01] MEDS: AZITHROMYCIN 250 MG TABLET PO SCH (09:07)
[2024-01-01] MEDS: ASPIRIN 81 MG TABLET(ECOTRIN) PO SCH (09:08)
[2024-01-01 11:14] VITALS: BP_SYST 133; PULSE 70; RESP 16; TEMP 96.2; O2SAT 95
[2024-01-01 14:58] VITALS: BP_SYST 134; PULSE 79; RESP 16; TEMP 98.9; O2SAT 98
[2024-01-01 19:55] VITALS: O2SAT 98
[2024-01-01 20:03] VITALS: BP_SYST 137; PULSE 74; RESP 18; TEMP 97.1; O2SAT 99
[2024-01-01] MEDS: INSULIN GLARGINE 100 UNITS/ML, 10 ML VIAL SUBCUT SCH (21:00)
[2024-01-02] VITALS (7 sets, daily range): BP systolic 130–134; PULSE 68–98; RESP 16–21; TEMP 97.1–98.4; O2SAT 93–100
[2024-01-02 06:08] LABS: BASOPHILS # (AUTO) 0.1 K/uL (0.0-0.2); BASOPHILS % (AUTO) 1.3 % (0.0-2.0); EOSINOPHILS # (AUTO) 0.5 K/uL (0.0-0.4); HEMATOCRIT 35.9 % (36-48); LYMPHOCYTES # (AUTO) 2.7 K/uL (1.0-5.5); LYMPHOCYTES % (AUTO) 28.7 % (20.5-51.5); MEAN CORPUSCULAR HEMOGLOBIN 28 pg (27-31); MEAN CORPUSCULAR HGB CONC 33 % (32-36); MEAN CORPUSCULAR VOLUME 85 fL (79.0-98.0); MONOCYTES # (AUTO) 0.6 K/uL (0.0-1.0); MONOCYTES % (AUTO) 6.6 % (1.7-9.3); NEUTROPHILS # (AUTO) 5.5 K/uL (1.8-7.7); NEUTROPHILS % (AUTO) 58.4 % (40.0-70.0); PLATELET COUNT (AUTO) 274 K/uL (130-430); RED BLOOD CELL COUNT(AUTO) 4.25 MIL/uL (4.2-6.2); RED CELL DISTRIBUTION WIDTH 14.3 % (9.0-15.0); WHITE BLOOD COUNT (AUTO) 9.5 K/uL (4.8-10.8)
[2024-01-02 06:47] LABS: ALBUMIN 2.2 g/dL (3.4-4.8); CALCIUM 8.7 mg/dL (8.4-11.0); CREATININE 0.81 mg/dL (0.55-1.30); POTASSIUM 4.9 mmol/L (3.5-5.1); TOTAL BILIRUBIN 0.3 mg/dL (0.0-1.0); TOTAL PROTEIN, SERUM 6.1 g/dL (6.4-8.3)
[2024-01-02] MEDS: LOSARTAN POTASSIUM 50 MG TABLET (COZAAR) PO SCH (09:26)
[2024-01-02] MEDS: FUROSEMIDE 40 MG/4 ML VIAL IVP ONE (10:30)
[2024-01-02] MEDS: FUROSEMIDE 40 MG TABLET PO ONE (15:56)
[2024-01-02] MEDS: levoFLOXacin 750 MG TABLET PO ONE (15:56)
[2024-01-02] MEDS ORDERED: CLOP75TA32 PO (17:19)
[2024-01-02] MEDS ORDERED: LEVO750T64 PO (17:19)
== END 2024-01-02 19:19 | disposition home health service (06) | DRG 64 ==
LOC: SED 09:30 → STU 12:59
PROVIDERS: ADMIT General Practice; ATTEND General Practice
DX: I63.9 Cerebral infarction, unspecified (principal); J15.9 Unspecified bacterial pneumonia; I10 Essential (primary) hypertension; E78.5 Hyperlipidemia, unspecified; Z20.822 Contact with and (suspected) exposure to COVID-19; E11.9 Type 2 diabetes mellitus without complications; Z79.899 Other long term (current) drug therapy
CPT/HCPCS: 36415; 70450-TC; 70496; 70498; 70551; 71045; 80048; 80053; 80061; 82948; 83037; 83605; 83735; 83880; 84484; 85025; 85610; 85730; 93005; 93306; 94070; 94640; 94760; 96365; 97116-GP; 97530-GP; 99285; G0378; J0696; J1815; J1956; J7060; J7626; Q0144; Q9967